=== PATIENT | female | born 1990 | race African-American/Black ===

== ENCOUNTER 2018-01-09 17:38 | Emergency (ER) | payer MEDICARE, MEDICAID ==
[2018-01-09 18:07] LABS: Bilirubin Negative (Negative); Blood, Urine Negative (Negative); Clarity Hazy (Clear); Glucose, Urine (Dipstick) Negative (Negative); Leukocyte Trace (Negative); Nitrite Negative (Negative); Pregnancy Test - Urine (BHCG) Negative (Negative); Protein, Urine (Dipstick) Negative (Neg-Trace); Specific Gravity 1.008 (1.002-1.036); Specific Gravity, Urine 1.008 (1.002-1.036); Urobilinogen 0.2 mg/dL (0.2-1.0)
[2018-01-09 18:08] LABS: Pregu Control Background? CLEAR/WHITE (CLR/WHITE); Pregu Control Bar Appear? YES (CONTROL BAR)
[2018-01-09 18:14] LABS: Bacteria/HPF Rare-Few HPF (None Seen); RBC/HPF None Seen HPF (0-3); WBC/HPF 0-3 HPF (0-3)
== END 2018-01-09 18:23 | disposition home or self-care (01) ==
LOC: SCSER 17:38
DX: F41.9 Anxiety disorder, unspecified; N39.0 Urinary tract infection, site not specified; Z71.6 Tobacco abuse counseling; F84.0 Autistic disorder; F17.200 Nicotine dependence, unspecified, uncomplicated
CPT/HCPCS: 81003; 81015; 81025; 99406

== ENCOUNTER 2018-01-17 10:11 | Emergency (ER) | payer MEDICARE, MEDICAID ==
[2018-01-17 10:33] LABS: Bilirubin Negative (Negative); Blood, Urine Negative (Negative); Clarity Clear (Clear); Glucose, Urine (Dipstick) Negative (Negative); Leukocyte Negative (Negative); Nitrite Negative (Negative); Protein, Urine (Dipstick) Negative (Neg-Trace); Urobilinogen 0.2 mg/dL (0.2-1.0); pH, Urine 5.5 (5.0-9.0)
[2018-01-17 10:34] LABS: Specific Gravity, Urine 1.025 (1.002-1.036)
[2018-01-17 10:35] LABS: Pregnancy Test - Urine (BHCG) Negative (Negative); Pregu Control Background? CLEAR/WHITE (CLR/WHITE); Pregu Control Bar Appear? YES (CONTROL BAR); Specific Gravity 1.025 (1.002-1.036)
== END 2018-01-17 10:45 | disposition home or self-care (01) ==
LOC: SCSER 10:11
DX: R30.0 Dysuria (principal); F84.0 Autistic disorder; F41.9 Anxiety disorder, unspecified; F32.9 Major depressive disorder, single episode, unspecified; F17.290 Nicotine dependence, other tobacco product, uncomplicated
CPT/HCPCS: 81003; 81025; 87086; 99283

== ENCOUNTER 2018-12-23 12:45 | Day surgery (SDC) | payer MEDICARE, MEDICAID ==
[2018-12-22 14:34] VITALS: BMI 36.6
[~2018-12-23 12:45] MED LIST: Lidocaine 1% PF 5 ML VIAL ONE; PROPOFOL 200 MG/20 ML VIAL ONE
[2018-12-23 14:10] LABS: #Basophils 0.1 thou/uL (0.0-0.2); #Eosinphils 0.3 thou/uL (0.0-0.7); #Lymphocytes 1.7 thou/uL (1.20-3.40); #Monocytes 0.3 thou/uL (0.11-0.59); #Neutrophils 3.4 thou/uL (1.40-6.50); %Basophils 1.2 % (0.0-1.0); %Eosinophils 4.4 % (0.0-10.0); %Lymphocytes 30.2 % (21.0-51.0); %Monocytes 4.5 % (0.0-10.0); %Neutrophils 59.7 % (42.0-75.0); Mean Corpuscular HGB CONC 33.5 g/dL (32.0-36.0); Mean Corpuscular Hemoglobin 31.8 pg (27.0-31.0); Mean Corpuscular Volume 95.1 fL (78.0-98.0); Mean Platelet Volume 6.7 fL (7.4-10.4); Platelet Count 322 thou/uL (130-400); RBC Distribution Width 11.1 % (11.5-14.5); Red Blood Cell (RBC) Count 3.78 mill/uL (4.20-5.40); White Blood Cell (WBC) Count 5.7 thou/uL (4.8-10.8)
[2018-12-23 14:29] LABS: Anion Gap 13 mmol/L (10-20); BUN (Urea Nitrogen) 8 mg/dL (7.0-18.7); Calc. Creatinine Clearance 169 mL/min (70-130); Calcium 9.4 mg/dL (7.8-10.44); Carbon Dioxide 22 mmol/L (22-29); Chloride 109 mmol/L (98-107); Estimated GFR-MDRD 85; Glucose 74 mg/dL (70-105); Potassium 3.9 mmol/L (3.5-5.1); Sodium 140 mmol/L (136-145)
[2018-12-23] MEDS ORDERED: Bacitracin Zinc Ointment 30 gm TUBE ONE (17:18)
[2018-12-23] MEDS ORDERED: Bupivacaine HCl 0.5%/Epinephrine 1:200,000/PF 30 ml Vial ONE (17:18)
[2018-12-23] MEDS ORDERED: Betamet Acet/Betamet Na Ph 30 MG/5 ML VIAL ONE (17:18)
[2018-12-23] MEDS ORDERED: Midazolam HCl 2 mg/2 ml Vial ONE (17:38)
[2018-12-23] MEDS ORDERED: Fentanyl 100 MCG/2 ML VIAL ONE (18:12)
[2018-12-23] MEDS ORDERED: Ketorolac Tromethamine 30 MG/ML VIAL ONE (19:06)
--- NOTE | 2018-12-24 01:22 | OP ---
DATE OF PROCEDURE: 12/23/2018 PREOPERATIVE DIAGNOSES: 1. Right carpal tunnel syndrome. 2. Left carpal tunnel syndrome. FINDINGS: Both right and left very tight retinaculum, proximal one half of the transverse carpal ligament over the nerve with early stippling, but no hourglass formation. No tenosynovitis seen. No masses. PROCEDURES PERFORMED: At the right wrist, 1. Right carpal tunnel release. 2. Right application of steroid around the nerve and tendons, wrist, Celestone 0.40 mg/mL. At the left side; 1. Left carpal tunnel release. 2. Injection of the steroid Celestone. SPECIMEN: None. TOURNIQUET TIME: On the right, 12 minutes. On the left, 13 minutes. ESTIMATED BLOOD LOSS: 10 mL total blood loss. INDICATIONS: The patient who has diabetes has positive exam and EMG has well demonstrated compression of the median nerve, which did not respond to relief methods today to include immobilization, anti-inflammatories, rest, and modification activity. DESCRIPTION OF PROCEDURE: After successful prepping and draping of both sides simultaneously, the limb was prepared for surgery; we chose the right side first, inflated, deflated, exsanguinated limb, obtained time-out and then inflated the tourniquet to 250 mmHg pressure. We made a standard incision in line with the ring finger as far distal as Garza's cardinal line as far proximal as 5 mm distal to the volar wrist flexion crease. We carried this through skin and subcutaneous tissue until we had a 2 cm incision length. We spread this, identified the palmaris longus and just ulnar to that entered the retinaculum with the transverse carpal ligament as midpoint. We did it distally until we completed the release and we then followed that closely as we did it proximally until we had complete release of all possible constrictions of the right carpal tunnel. We deflated the tourniquet, obtained hemostasis, placed Celestone in the wound 2.5 mL and then closed the incision with interrupted 4-0 nylon in a horizontal mattress pattern without evidence of anesthetic operative complication. Soft dressing was applied. Then, at the left side, we exsanguinated the limb, inflated the tourniquet to 250 mmHg pressure, then the exact mirror image procedure was done on the right side, already dictated in the body of this dictation. There were no complications. Tourniquet time was, however, 13 minutes. The patient then went to recovery room, where there was no evidence of excessive pain. Given appropriate postoperative prescriptions and left the hospital without evidence of anesthetic or operative complication. Job ID: [id number]
== END 2018-12-23 21:32 | disposition home or self-care (01) ==
LOC: SDC 12:45
PROVIDERS: ATTEND Orthopaedic Surgery Hand Surgery
PROC: 01N50ZZ Release Median Nerve, Open Approach (ICD-10-PCS; principal; 2018-12-23)
PROC: 01N50ZZ Release Median Nerve, Open Approach (ICD-10-PCS; 2018-12-23)
DX: G56.03 Carpal tunnel syndrome, bilateral upper limbs (principal); E11.9 Type 2 diabetes mellitus without complications; F17.290 Nicotine dependence, other tobacco product, uncomplicated; F90.9 Attention-deficit hyperactivity disorder, unspecified type; K21.9 Gastro-esophageal reflux disease without esophagitis; F84.0 Autistic disorder; F25.9 Schizoaffective disorder, unspecified; Z79.899 Other long term (current) drug therapy
CPT/HCPCS: 80048; 85025; 85652; J0670; J0702; J1885; J2250; J3010

== ENCOUNTER 2019-01-06 14:38 | Emergency (ER) | payer MEDICARE, MEDICAID ==
[2019-01-06 15:45] LABS: #Basophils 0.1 thou/uL (0.0-0.2); #Eosinphils 0.1 thou/uL (0.0-0.7); #Lymphocytes 1.5 thou/uL (1.20-3.40); #Monocytes 0.3 thou/uL (0.11-0.59); #Neutrophils 5.9 thou/uL (1.40-6.50); %Basophils 0.8 % (0.0-1.0); %Eosinophils 1.6 % (0.0-10.0); %Lymphocytes 18.8 % (21.0-51.0); %Neutrophils 74.9 % (42.0-75.0); Hemoglobin 10.7 g/dL (12.0-16.0); Mean Corpuscular HGB CONC 32.3 g/dL (32.0-36.0); Mean Corpuscular Hemoglobin 30.2 pg (27.0-31.0); Mean Corpuscular Volume 93.5 fL (78.0-98.0); Mean Platelet Volume 5.8 fL (7.4-10.4); Platelet Count 287 thou/uL (130-400); RBC Distribution Width 11.5 % (11.5-14.5); Red Blood Cell (RBC) Count 3.54 mill/uL (4.20-5.40); White Blood Cell (WBC) Count 7.8 thou/uL (4.8-10.8)
== END 2019-01-06 16:06 | disposition home or self-care (01) ==
LOC: SCSER 14:38
DX: G89.18 Other acute postprocedural pain (principal); D64.9 Anemia, unspecified; F41.9 Anxiety disorder, unspecified; F32.9 Major depressive disorder, single episode, unspecified; F17.220 Nicotine dependence, chewing tobacco, uncomplicated; F84.0 Autistic disorder
CPT/HCPCS: 85025; 99283

== ENCOUNTER 2021-04-03 19:32 | Emergency (ER) | payer MEDICARE, MEDICAID | END 2021-04-05 08:43 | LOC: ERS 19:32 | DX: T43.592A Poisoning by other antipsychotics and neuroleptics, intentional self-harm, initial encounter (principal); Z20.822 Contact with and (suspected) exposure to COVID-19; I10 Essential (primary) hypertension; F84.0 Autistic disorder; F17.210 Nicotine dependence, cigarettes, uncomplicated; J30.2 Other seasonal allergic rhinitis; Z79.899 Other long term (current) drug therapy | CPT/HCPCS: 80306; 80307; 81025; 93005; U0002; U0005; 36415; 80053; 81003; 81015; 84443; 85025; 96374; 96375; J2060; J2405 ==

== ENCOUNTER 2022-04-16 18:00 | Outpatient (CLI) | payer MEDICARE, MEDICAID | END 2022-04-16 18:01 | disposition home or self-care (01) | LOC: SLEEPLAB 18:00 | PROVIDERS: ATTEND Otolaryngology Plastic Surgery within the Head & Neck | DX: G47.33 Obstructive sleep apnea (adult) (pediatric) (principal); R06.83 Snoring; G47.10 Hypersomnia, unspecified | CPT/HCPCS: 95800 ==

== ENCOUNTER 2022-05-15 16:19 | Outpatient (CLI) | payer OTHER | END 2022-05-15 16:20 | disposition home or self-care (01) | LOC: LABBT 16:19 | PROVIDERS: ATTEND Otolaryngology Plastic Surgery within the Head & Neck | DX: Z01.812 Encounter for preprocedural laboratory examination (principal); J32.0 Chronic maxillary sinusitis; J32.1 Chronic frontal sinusitis; J32.2 Chronic ethmoidal sinusitis; J32.3 Chronic sphenoidal sinusitis; J34.3 Hypertrophy of nasal turbinates; Z20.822 Contact with and (suspected) exposure to COVID-19 | CPT/HCPCS: 85014; 87811 ==

== ENCOUNTER 2022-05-20 07:38 | Day surgery (SDC) | payer OTHER, MEDICARE ==
[2022-05-20] MEDS ORDERED: Oxymetazoline HCl 0.05% (30 ML BOT) ONE ×2 (07:58→09:13)
[2022-05-20] MEDS ORDERED: Midazolam HCl 2 mg/2 ml Vial ONE (08:34)
[2022-05-20] MEDS ORDERED: SUGAMMADEX SODIUM 200 MG/2 ML VIAL ONE (09:19)
[2022-05-20] MEDS ORDERED: fentaNYL Citrate/PF 100 MCG/2 ML SYRINGE ONE (09:19)
[2022-05-20] MEDS ORDERED: Lidocaine 1% PF 5 ML VIAL ONE (09:54)
[2022-05-20] MEDS ORDERED: Ondansetron PF 4 MG/2 ML Vial ONE ×2 (09:54→11:09)
[2022-05-20] MEDS ORDERED: Rocuronium Bromide 10 MG/ML (10ML VIAL) ONE (09:54)
[2022-05-20] MEDS ORDERED: PROPOFOL 200 MG/20 ML VIAL ONE (09:54)
[2022-05-20] MEDS ORDERED: Dexamethasone 20 MG/5 ML VIAL ONE (09:54)
[2022-05-20] MEDS ORDERED: Fentanyl 100 MCG/2 ML VIAL ONE (11:09)
== END 2022-05-20 12:58 | disposition home or self-care (01) ==
LOC: SDC 07:38
PROVIDERS: ATTEND Otolaryngology Plastic Surgery within the Head & Neck
PROC: 8E09XBZ Computer Assisted Procedure of Head and Neck Region (ICD-10-PCS; principal; 2022-05-20)
PROC: 09TL8ZZ Resection of Nasal Turbinate, Via Natural or Artificial Opening Endoscopic (ICD-10-PCS; 2022-05-20)
PROC: 099T8ZZ Drainage of Left Frontal Sinus, Via Natural or Artificial Opening Endoscopic (ICD-10-PCS; 2022-05-20)
PROC: 099S8ZZ Drainage of Right Frontal Sinus, Via Natural or Artificial Opening Endoscopic (ICD-10-PCS; 2022-05-20)
PROC: 099X8ZZ Drainage of Left Sphenoid Sinus, Via Natural or Artificial Opening Endoscopic (ICD-10-PCS; 2022-05-20)
PROC: 099W8ZZ Drainage of Right Sphenoid Sinus, Via Natural or Artificial Opening Endoscopic (ICD-10-PCS; 2022-05-20)
PROC: 099R8ZZ Drainage of Left Maxillary Sinus, Via Natural or Artificial Opening Endoscopic (ICD-10-PCS; 2022-05-20)
PROC: 099Q8ZZ Drainage of Right Maxillary Sinus, Via Natural or Artificial Opening Endoscopic (ICD-10-PCS; 2022-05-20)
PROC: 09TV8ZZ Resection of Left Ethmoid Sinus, Via Natural or Artificial Opening Endoscopic (ICD-10-PCS; 2022-05-20)
PROC: 09TU8ZZ Resection of Right Ethmoid Sinus, Via Natural or Artificial Opening Endoscopic (ICD-10-PCS; 2022-05-20)
DX: J32.4 Chronic pansinusitis (principal); J34.3 Hypertrophy of nasal turbinates; J34.89 Other specified disorders of nose and nasal sinuses; J34.2 Deviated nasal septum; F17.290 Nicotine dependence, other tobacco product, uncomplicated; F84.0 Autistic disorder; J45.909 Unspecified asthma, uncomplicated; F40.240 Claustrophobia; Z79.899 Other long term (current) drug therapy; Z88.8 Allergy status to other drugs, medicaments and biological substances
CPT/HCPCS: J1100; J2250; J2405; J2704; J3010

== ENCOUNTER 2022-10-16 11:15 | Outpatient (CLI) | payer MEDICARE, MEDICAID | END 2022-10-16 11:16 | disposition home or self-care (01) | LOC: BICRAD 11:15 | PROVIDERS: ATTEND Podiatrist | DX: M79.672 Pain in left foot (principal); R60.0 Localized edema; M21.6X2 Other acquired deformities of left foot ==

== ENCOUNTER 2023-03-24 13:06 | Emergency (ER) | payer OTHER ==
[2023-03-24 14:52] LABS: Bacteria/HPF 3+ HPF (None Seen); Bilirubin Negative (Negative); Blood, Urine Negative (Negative); CAUTI Indications for Culture Alt mental st,lethar; Clarity Clear (Clear); Glucose, Urine (Dipstick) Normal (Negative); Ketone, Urine Negative (Negative); Leukocyte Negative Leu/uL (Negative); Nitrite Negative (Negative); Pregnancy Test - Urine (BHCG) Negative (Negative); Pregu Control Background? CLEAR/WHITE (CLR/WHITE); Pregu Control Bar Appear? YES (CONTROL BAR); Protein, Urine (Dipstick) Negative (Neg-Trace); RBC/HPF 0-3 HPF (0-3); Specific Gravity 1.014 (1.002-1.036); Specific Gravity, Urine 1.014 (1.002-1.036); Squamous Epithelial 0-3 HPF (0-3); Urobilinogen Normal mg/dL (Less than 2); WBC/HPF 0-3 HPF (0-3)
[2023-03-24 14:54] LABS: Urine Culture Reflex No No
[2023-03-24 15:00] LABS: Amphetamine Not Detected (NotDetected); Barbiturates Screen Not Detected (NotDetected); Benzodiazepine Screen Not Detected (NotDetected); Cocaine Metabolite Screen Not Detected (NotDetected); Methadone Not Detected (NotDetected); Methamphetamine Not Detected (NotDetected); Opiate Screen Not Detected (NotDetected); Oxycodone Screen Not Detected (NotDetected); Phencyclidine (PCP) Not Detected (NotDetected); THC/Cannabinoid Screen Not Detected (NotDetected); Tricyclic Screen Not Detected (NotDetected)
[2023-03-24 15:27] LABS: #Eosinphils 0.1 thou/uL (0.0-0.7); #Monocytes 0.3 thou/uL (0.11-0.59); #Neutrophils 5.7 thou/uL (1.40-6.50); %Basophils 0.6 % (0.0-1.0); %Eosinophils 1.7 % (0.0-10.0); %Lymphocytes 10.8 % (21.0-51.0); %Monocytes 4.8 % (0.0-10.0); %Neutrophils 81.8 % (42.0-75.0); Hemoglobin 11.7 g/dL (12.0-16.0); Mean Corpuscular HGB CONC 32.9 g/dL (32.0-36.0); Mean Corpuscular Hemoglobin 32.1 pg (27.0-31.0); Mean Corpuscular Volume 97.8 fl (78.0-98.0); Mean Platelet Volume 9.6 fL (7.4-10.4); Platelet Count 350 10x3/uL (130-400); RBC Distribution Width 12.1 % (11.5-14.5); Red Blood Cell (RBC) Count 3.64 mill/uL (4.20-5.40)
[2023-03-24 16:03] LABS: Acetaminophen Less than 10 mcg/mL (10.0-30.0); Alcohol Less than 10.0 mg/dL (Less than 10); Salicylate Less than 8.0 mg/dL (15.0-30.0)
[2023-03-24 16:09] LABS: ALT (SGPT) 34 U/L (8-55); AST (SGOT) 21 U/L (5-34); Albumin 4.6 g/dL (3.5-5.0); Alkaline Phosphatase 68 U/L (40-110); Anion Gap 14 mmol/L (10-20); BUN (Urea Nitrogen) 6 mg/dL (7.0-18.7); Bilirubin, Total 0.4 mg/dL (0.2-1.2); Calc. Creatinine Clearance 0 mL/min (70-130); Calcium 9.8 mg/dL (7.8-10.44); Carbon Dioxide 21 mmol/L (22-29); Chloride 108 mmol/L (98-107); Estimated GFR 98; Globulin 2.7 g/dL (2.4-3.5); Glucose 88 mg/dL (70-105); Potassium 4.2 mmol/L (3.5-5.1); Protein, Total 7.3 g/dL (6.0-8.3); Sodium 139 mmol/L (136-145)
== END 2023-03-24 15:51 | disposition home or self-care (01) ==
LOC: ERS 13:06
DX: S09.90XA Unspecified injury of head, initial encounter (principal); I10 Essential (primary) hypertension; F17.210 Nicotine dependence, cigarettes, uncomplicated; W18.30XA Fall on same level, unspecified, initial encounter
CPT/HCPCS: 36415; 70450; 80053; 80306; 80307; 81001; 81025; 85025

== ENCOUNTER 2024-09-06 08:04 | Emergency (ER) | payer OTHER, MEDICAID | END 2024-09-06 09:22 | disposition home or self-care (01) | LOC: ERS 08:04 | DX: H66.92 Otitis media, unspecified, left ear (principal); F17.290 Nicotine dependence, other tobacco product, uncomplicated | CPT/HCPCS: 99282 ==

== ENCOUNTER 2024-10-20 10:34 | Outpatient (CLI) | payer OTHER | END 2024-10-20 10:35 | disposition home or self-care (01) | LOC: BICRAD 10:34 | DX: M17.0 Bilateral primary osteoarthritis of knee (principal); M23.8X2 Other internal derangements of left knee ==